=== PATIENT | female | born 1975 | race Caucasian/White ===

== ENCOUNTER → 2017-04-16 | Outpatient (CLI) | payer BC ==
[~2017-04-16] MED LIST: ACET-1311 PO; IBUP-1050 PO; PRENTAB26 PO
== END | disposition home or self-care (01) ==
LOC: C.LAB1850 10:10
PROVIDERS: ATTEND Internal Medicine
DX: Z13.1 Encounter for screening for diabetes mellitus (principal); Z13.220 Encounter for screening for lipoid disorders; Z13.29 Encounter for screening for other suspected endocrine disorder

== ENCOUNTER → 2017-04-16 | Outpatient (CLI) | payer BC | END | disposition home or self-care (01) | LOC: C.PAPS 13:32 | PROVIDERS: ATTEND Physician Assistant | DX: Z01.419 Encounter for gynecological examination (general) (routine) without abnormal findings (principal) ==

== ENCOUNTER → 2017-05-02 | Outpatient (CLI) | payer BC, OTHER ==
--- NOTE | 2017-05-03 15:26 | MAMMOGRAPHY REPORT ---
BILATERAL DIGITAL SCREENING MAMMOGRAM TOMOSYNTHESIS WITH CAD: 05/02/2017 CLINICAL HISTORY: Routine screening. Baseline exam. TECHNIQUE: Breast tomosynthesis in addition to standard 2D mammography was performed. Current study was also evaluated with a Computer Aided Detection (CAD) system. COMPARISON: No prior exams were available for comparison. BREAST COMPOSITION: The tissue of both breasts is heterogeneously dense, which may obscure small mas ses. FINDINGS: There is a possible small 7 mm mass with associated calcifications in the left upper outer quadrant, which could represent fibrocystic changes although spot magnification views and possible b reast ultrasound are recommended for further evaluation, given no priors to document stability. The remainder of both breasts are negative, without suspicious masses, calcifications, or areas of ar chitectural distortion noted. IMPRESSION: ACR BI-RADS CATEGORY 0: INCOMPLETE EVALUATION: NEED ADDITIONAL IMAGING EVALUATION Possible left breast mass with associated calcifications, for which additional imaging evaluation is recommended. The patient will be called to schedule an appointment. Approximately 10% of breast cancers are not detected with mammography. A negative mammographic report should not delay biopsy if a clinically suggestive mass is present. Yoly Vargas M.D. ah/:05/02/2017 16:14:23 Business Strategist: Monika NEUMANN([place])(M), [facility] letter sent: Addl Imaging 0 BI-RADS Code: ACR BI-RADS Category 0: Incomplete Evaluation: Need Additional Imaging Evaluation
== END | disposition home or self-care (01) ==
LOC: C.MAMM 15:07
PROVIDERS: ATTEND Internal Medicine
DX: Z12.31 Encounter for screening mammogram for malignant neoplasm of breast (principal)

== ENCOUNTER → 2017-05-14 | Outpatient (CLI) | payer BC, OTHER ==
--- NOTE | 2017-05-14 15:24 | MAMMOGRAPHY REPORT ---
UNILATERAL LEFT DIGITAL DIAGNOSTIC MAMMOGRAM AND TARGETED LEFT ULTRASOUND: 05/14/2017 CLINICAL HISTORY: 41-year-old woman called back from baseline screening mammogram for a small 7 mm ma ss with associated calcifications in the lateral left breast. No family history of breast cancer. TECHNIQUE: Spot magnification left CC and ML views were obtained. COMPARISON: Comparison is made to exam dated: 05/02/2017 mammogram - [facility]. BREAST COMPOSITION: The tissue of the left breast is heterogeneously dense, which may obscure small masses. FINDINGS: The spot magnification views of the left breast demonstrate less conspicuous grouped puncta te microcalcifications in the CC projection. There is persistence of approximately 3 microcalcificat ions in the slightly inferior posterior left breast on the spot magnification ML view. The associate d mass is also less conspicuous on the spot magnification views and therefore further characterizatio n with ultrasound was performed. Targeted ultrasound was performed throughout the lateral left breast. A few anechoic cysts are ident ified, the first is in the 3:00 axis, 2 cm from the nipple, measuring 5.4 x 3.8 x 5.6 mm. A multi lo culated predominantly simple cyst with possible internal layering calcification is seen in the 4:00 l eft breast, 1 cm from the nipple, measuring 4.4 x 2.8 by approximately 3.4 mm. There is a third poss ible hypoechoic solid versus cystic mass in the 2:00 left breast, 1 cm from the nipple, measuring 6.2 x 4.4 x 2.7 mm, also containing possible internal calcifications. No suspicious solid mass is seen. All of the above masses most likely represent benign fibrocystic change suggesting the mammographic mass with calcification could represent a cyst with internal calcifications. Nevertheless, a short interval follow-up left diagnostic tomosynthesis mammogram including spot magnification views and rep eat targeted ultrasound with particular attention to the 2:00 left breast is recommended in 6 months. IMPRESSION: ACR-BI-RADS CATEGORY 3: PROBABLY BENIGN, TARGETED ULTRASOUND ACR-BI-RADS CATEGORY 3: PRO BABLY BENIGN 1. The 7 mm mass with associated grouped punctate calcification in the lateral left breast is less co nspicuous on the current spot magnification views and only approximately 3 punctate calcifications ar e identified in the ML projection, none of which demonstrate layering to confirm benignity. This sug gests this finding could represent a cyst containing internal calcification, but the findings identif ied on ultrasound are thought to be located too close to the nipple to correlate with the mammographi c finding. Given that no other suspicious abnormality was seen throughout the entire lateral left br east on targeted ultrasound this mammographic finding is probably benign, representing fibrocystic ch marly. A short interval follow-up left diagnostic tomosynthesis mammogram including repeat spot magni fication views and repeat targeted ultrasound and the left 2:00 breast is recommended to ensure stabi lity in 6 months. These results and recommendations were discussed with the patient at the time of the exam. She tenta tively scheduled a follow-up appointment prior to leaving our department. Approximately 10% of breast cancers are not detected with mammography. A negative mammographic report should not delay biopsy if a clinically suggestive mass is present. Pearl Shah M.D. ay/:05/14/2017 12:19:17 Bog Worker: Sobia NEUMANN([place])(Jessie), [facility] letter sent: Follow Up Recommended 3 BI-RADS Code: ACR-BI-RADS Category 3: Probably Benign Ultrasound BI-RADS: ACR-BI-RADS Category 3: Pr obably Benign
== END | disposition home or self-care (01) ==
LOC: C.MAMM 11:03
PROVIDERS: ATTEND Internal Medicine
DX: R92.1 Mammographic calcification found on diagnostic imaging of breast (principal); N63.20 Unspecified lump in the left breast, unspecified quadrant

== ENCOUNTER → 2017-10-28 | Outpatient (CLI) | payer OTHER, BC ==
--- NOTE | 2017-10-28 15:12 | MAMMOGRAPHY REPORT ---
UNILATERAL LEFT DIGITAL DIAGNOSTIC MAMMOGRAM TOMOSYNTHESIS WITH CAD AND LEFT ULTRASOUND: 10/28/2017 CLINICAL HISTORY: 42-year-old woman presents for follow-up in the left breast for a probably benign 7 mm mass with associated 3 punctate calcifications in the lateral breast. TECHNIQUE: Left breast CC and MLO 2D and tomosynthesis images were obtained. Current study was also evaluated with a Computer Aided Detection (CAD) system. COMPARISON: Comparison is made to exams dated: 05/14/2017 mammogram, 05/02/2017 mammogram, and 8 ultrasound - [facility]. BREAST COMPOSITION: The tissue of left breast is heterogeneously dense, which may obscure small sarah s. FINDINGS: The glandular tissue pattern is similar to the prior mammogram. There is an 8 mm nodular a symmetry in the lateral middle 1/3 of the left breast. The possible 7 mm mass in the lateral left br east is less conspicuous comparing to the prior mammogram and the microcalcifications in the lateral left breast are no longer seen, confirming benignity, most likely a fluctuating cyst. There is no ev idence of a suspicious spiculated or irregular mass, new suspicious calcifications, developing asymme try or architectural distortion. No skin thickening or nipple retraction. Further evaluation with u ltrasound was performed. Targeted ultrasound was performed throughout the lateral left breast. Numerous scattered anechoic be nign simple cysts are identified. The previously observed cyst in the 3:00 left breast, 2 cm from th e nipple has decreased in size, currently measuring 4.2 x 3.3 x 4.3 mm, and this was thought to corre late with the initial mammographic finding with associated calcification. Other scattered anechoic s imple cysts are identified in the 12:00, 1:00, 2:00, and 4:00 axes compatible with benign fibrocystic change. No suspicious solid masses identified in the lateral left breast on targeted ultrasound. IMPRESSION: ACR BI-RADS CATEGORY 2: BENIGN, ULTRASOUND ACR BI-RADS CATEGORY 2: BENIGN 1. A previously observed 7 mm mass with 3 associated punctate calcification in the lateral left seema st is no longer identified, confirming benignity. This most likely represented a cyst with associate d milk of calcium. 2. There are several subcentimeter anechoic simple cysts throughout the lateral left breast on targe venkata ultrasound, consistent with benign fibrocystic change. 3. There is no mammographic or targeted sonographic evidence of malignancy in the left breast. Mal mmend return to annual screening mammography schedule, due April 2018. Some breast cancers are not detected with mammography. A negative mammographic report should not lynne y biopsy if a clinically suggestive mass is present. Pearl Shah M.D. ay/:10/28/2017 10:58:01 Marketing Finance Manager: Monika Hayden, [facility]; Pearl Shah, [facility] letter sent: Normal 1/2 OVERALL STUDY BIRADS: 2 Benign
== END | disposition home or self-care (01) ==
LOC: C.MAMM 09:18
PROVIDERS: ATTEND Internal Medicine
DX: Z09 Encounter for follow-up examination after completed treatment for conditions other than malignant neoplasm (principal); N60.02 Solitary cyst of left breast